=== PATIENT | female | born 1960 | race Caucasian/White ===

== ENCOUNTER → 2018-11-11 | Outpatient (CLI) | payer BC ==
--- NOTE | 2018-11-11 12:11 | RAD ---
Two-view chest dated 11/11/2018. No comparison available. Clinical data indication: Chest pain and cough for one week. FINDINGS: PA and lateral views obtained. Heart and mediastinal contours are stable. Minimal linear opacity at both lung bases, likely scar or atelectasis. Lungs are otherwise clear. No consolidation or pleural effusion. No pneumothorax. IMPRESSION: No acute radiographic abnormality. Minimal bibasilar scar or atelectasis. Electronically signed by: Satya Crabtree MD (11/11/2018 12:06 PM) [id number]
== END | disposition home or self-care (01) ==
LOC: DXRAD 11:22
PROVIDERS: ATTEND Nurse Practitioner Family
DX: R05 Cough (principal); R50.9 Fever, unspecified
CPT/HCPCS: 71046

== ENCOUNTER → 2019-12-05 | Day surgery (SDC) | payer BC ==
[~2019-12-05] MED LIST: ACETAMINOPHEN 325 MG TABLET PO PRN; ALBUTEROL SULFATE 2.5 MG/3 ML NEBU. NEB PRN; ALPR0.5T PO; ASCO100T4 PO; ATROPINE 0.5 MG/5 ML DISP.SYRIN. IV PRN; BALANCED SALT IRRIG OPHTH SOLN 15 ML BOTTLE. IRR ONE; CATARACT OPHTH GEL 0.5 ML SYRINGE. OD ONE; CETI10TA24 PO; CHOL200078 PO; CHONDROIT-SOD-HYALURONATE KIT. OD ONE; DEXT30TA2 PO; EPINEPHrine AMPULE 0.5 MG in BALANCED SALT IRRIG SOLN PLUS 500 ML IO ONE; ERYTHROMYCIN 0.5% OPHTH OINTMENT 1GM TUBE. OD ONE; FLUO40CA2 PO; FLUT9.9S NS; HYALURONIDASE 75UNITS in LIDOCAINE 2% PF OPHTH 10 ML SYRINGE. OD ONE; KETOROLAC TROMETHAMINE 0.5% OPHTH SOLUTION BOTTLE. OD ONE; KETOROLAC TROMETHAMINE 0.5% OPHTH SOLUTION BOTTLE. OD SCH; KETOROLAC TROMETHAMINE 0.5% OPHTH SOLUTION BOTTLE. ONE; MOXIFLOXACIN 0.5% OPHTH SOLUTION 3ML BOTTLE. OD SCH; ONDANSETRON PF 4 MG/2 ML VIAL. IV PRN; POVIDONE-IODINE 5% OPHTH SOLUTION 30ML BOTTLE. OD ONE; PROPOFOL 20 ML IV ONE; TETRACAINE 0.5% OPHTH SOLUTION 4ML BOTTLE. OD ONE; TETRACAINE 0.5% OPHTH SOLUTION 4ML BOTTLE. OU ONE; diphenhydrAMINE 50 MG/ML VIAL IV PRN; prednisoLONE ACETATE 1% OPHTH SUSPENSION 5ML BOTTLE. OD ONE; prednisoLONE ACETATE 1% OPHTH SUSPENSION 5ML BOTTLE. OD SCH; prednisoLONE ACETATE 1% OPHTH SUSPENSION 5ML BOTTLE. ONE
[2019-12-05] MEDS: MOXIFLOXACIN 0.5% OPHTH SOLUTION 3ML BOTTLE. OD SCH ×3 (06:55→07:09)
--- NOTE | 2019-12-05 08:09 | PDOC4 ---
Senile Cataract, Right Eye Date of Procedure: Dec 05, 2019 Preoperative Diagnosis: Preoperative Diagnosis: Senile Cataract, Right Eye Postoperative Diagnosis: Senile Cataract, Right Eye Anesthesia: Local with monitored anesthesia care Surgeon: Jorge Sharma D.O. Procedure: Right Phacoemulsification with Intraocular Lens Implant Findings: Senile Cataract Indications: Worsening vision interfering with patient's lifestyle Narrative: After discussing the risks, complications and alternatives, including but not limited to loss of vision, infection, bleeding, swelling, anesthetic reaction, capsule rupture with vitreous loss, etc., the patient was given a peribulbar block under mild IV sedation and cardiac monitoring. Pressure was applied to the eye for approximately 10 minutes. The patient was transferred to the main operating room and was prepped and draped in the usual sterile fashion and positioned under the microscope. A lid speculum was placed. A temporal clear corneal incision was made with a keratome and viscoelastic was injected into the eye. A side port incision was made. A continuous tear capsulorrhexis was performed, then hydrodissection was accomplished with balanced salt solution. The phacoemulsification needle was placed in the eye and the nucleus was emulsified. The remaining cortical material was removed with the irrigation and aspiration apparatus. The capsule was polished as needed. The posterior capsule was noted to be clean and intact. Viscoelastic was injected into the eye inflating the capsular bag. An intraocular lens was injected into the eye, unfolding as desired and was positioned in the capsular bag. The viscoelastic was aspirated from the eye. The wound edges were hydrated with balanced salt solution and there were no leaks. Viscoelastic was injected over the limbal incisions. Antibiotic and steroid were placed on the eye. The lid speculum was removed, the eye patched shut and a Gerardo shield applied. There were no complications and the patient was taken to the PACU in good condition. JORGE SAHRMA DO Dec 05, 2019 08:09
[2019-12-05 08:17] VITALS: BP 164/70
== END ==
LOC: SURG 06:21
PROVIDERS: ATTEND Ophthalmology
DX: H25.11 Age-related nuclear cataract, right eye (principal)
CPT/HCPCS: 66984; J0171; J2704; V2632

== ENCOUNTER → 2019-12-26 | Day surgery (SDC) | payer BC ==
[~2019-12-26] MED LIST changes: -ACETAMINOPHEN 325 MG TABLET PO PRN; -ALBUTEROL SULFATE 2.5 MG/3 ML NEBU. NEB PRN; -ATROPINE 0.5 MG/5 ML DISP.SYRIN. IV PRN; -CATARACT OPHTH GEL 0.5 ML SYRINGE. OD ONE; +CATARACT OPHTH GEL 0.5 ML SYRINGE. OS ONE; -CHONDROIT-SOD-HYALURONATE KIT. OD ONE; +CHONDROIT-SOD-HYALURONATE KIT. OS ONE; -ERYTHROMYCIN 0.5% OPHTH OINTMENT 1GM TUBE. OD ONE; +ERYTHROMYCIN 0.5% OPHTH OINTMENT 1GM TUBE. OS ONE; -HYALURONIDASE 75UNITS in LIDOCAINE 2% PF OPHTH 10 ML SYRINGE. OD ONE; +HYALURONIDASE 75UNITS in LIDOCAINE 2% PF OPHTH 10 ML SYRINGE. OS ONE; +IPRATRPIUM/ALBUTEROL 0.5/2.5MG 3 ML NEBU. NEB PRN; +IV RINGERS SOLUTION,LACTATED 1,000 ML IV SCH; -KETOROLAC TROMETHAMINE 0.5% OPHTH SOLUTION BOTTLE. OD ONE; -KETOROLAC TROMETHAMINE 0.5% OPHTH SOLUTION BOTTLE. OD SCH; +KETOROLAC TROMETHAMINE 0.5% OPHTH SOLUTION BOTTLE. OS SCH; -MOXIFLOXACIN 0.5% OPHTH SOLUTION 3ML BOTTLE. OD SCH; +MOXIFLOXACIN 0.5% OPHTH SOLUTION 3ML BOTTLE. OS SCH; -POVIDONE-IODINE 5% OPHTH SOLUTION 30ML BOTTLE. OD ONE; +POVIDONE-IODINE 5% OPHTH SOLUTION 30ML BOTTLE. OS ONE; -TETRACAINE 0.5% OPHTH SOLUTION 4ML BOTTLE. OD ONE; +TETRACAINE 0.5% OPHTH SOLUTION 4ML BOTTLE. OS ONE; -diphenhydrAMINE 50 MG/ML VIAL IV PRN; -prednisoLONE ACETATE 1% OPHTH SUSPENSION 5ML BOTTLE. OD ONE; -prednisoLONE ACETATE 1% OPHTH SUSPENSION 5ML BOTTLE. OD SCH; +prednisoLONE ACETATE 1% OPHTH SUSPENSION 5ML BOTTLE. OS SCH
[2019-12-26] MEDS: MOXIFLOXACIN 0.5% OPHTH SOLUTION 3ML BOTTLE. OS SCH ×3 (06:55→07:12)
[2019-12-26 08:02] VITALS: BP 174/69
--- NOTE | 2019-12-26 08:56 | PDOC4 ---
Phaco IOL/Cataract/OS Date of Procedure: Dec 26, 2019 Preoperative Diagnosis: Senile Cataract, Left Eye Postoperative Diagnosis: Senile Cataract, Left Eye Anesthesia: Local (Block) with monitored anesthesia care Surgeon: Jorge Sharma D.O. Procedure: Left Phacoemulsification with Intraocular Lens Implant Findings: Senile Cataract Indications: Worsening vision interfering with patient's lifestyle Narrative: After discussing the risks, complications and alternatives, including but not limited to loss of vision, infection, bleeding, swelling, anesthetic reaction, capsule rupture with vitreous loss, etc., the patient was given a peribulbar block under mild IV sedation and cardiac monitoring. Pressure was applied to the eye for approximately 10 minutes. The patient was transferred to the main operating room and was prepped and draped in the usual sterile fashion and positioned under the microscope. A lid speculum was placed. A temporal clear corneal incision was made with a keratome and viscoelastic was injected into the eye. A side port incision was made. A continuous tear capsulorrhexis was performed, then hydrodissection was accomplished with balanced salt solution. The phacoemulsification needle was placed in the eye and the nucleus was emulsified. The remaining cortical material was removed with the irrigation and aspiration apparatus. The capsule was polished as needed. The posterior capsule was noted to be clean and intact. Viscoelastic was injected into the eye inflating the capsular bag. An intraocular lens was injected into the eye, unfolding as desired and was positioned in the capsular bag. The viscoelastic was aspirated from the eye. The wound edges were hydrated with balanced salt solution and there were no leaks. Viscoelastic was injected over the limbal incisions. Antibiotic and steroid were placed on the eye. The lid speculum was removed, the eye patched shut and a Gerardo shield applied. There were no complications and the patient was taken to the PACU in good condition. JORGE SHARMA DO Dec 26, 2019 08:56
== END ==
LOC: SURG 06:14
PROVIDERS: ATTEND Ophthalmology
DX: H25.12 Age-related nuclear cataract, left eye (principal); F41.9 Anxiety disorder, unspecified; F32.9 Major depressive disorder, single episode, unspecified; E66.8 Other obesity; Z68.32 Body mass index [BMI] 32.0-32.9, adult
CPT/HCPCS: 66984; J0171; J2704; V2632